=== PATIENT | female | born 1975 | race Caucasian/White ===

== ENCOUNTER 2017-06-08 21:19 | Emergency (ER) | payer MEDICAID ==
[2017-06-08 22:40] VITALS: BP 128/65
== END 2017-06-08 22:40 | disposition home or self-care (01) ==
LOC: ED 21:19
DX: N76.0 Acute vaginitis (principal); R51 Headache; Z88.0 Allergy status to penicillin; Z88.1 Allergy status to other antibiotic agents

== ENCOUNTER 2019-05-02 12:42 | Emergency (ER) | payer MEDICAID ==
[~2019-05-02] VITALS: Ht 157.5 cm; Wt 65.3 kg
[2019-05-02 12:47] VITALS: BP 128/77; Ht 157.5 cm; Wt 65.3 kg
== END 2019-05-02 13:50 | disposition home or self-care (01) ==
LOC: ED 12:42
DX: R21 Rash and other nonspecific skin eruption (principal); Z88.0 Allergy status to penicillin; Z88.1 Allergy status to other antibiotic agents; Z88.2 Allergy status to sulfonamides
CPT/HCPCS: J1100